=== PATIENT | male | born 1945 | race Hispanic/Latino ===

== ENCOUNTER 2017-06-19 18:32 | Emergency (ER) | payer MEDICARE ==
[2017-06-19] MEDS ORDERED: Bacitracin 500 Units/gm Oint Foilpak UD TOP STA (19:39)
[2017-06-19] MEDS ORDERED: Tetanus/Diphtheria Toxoids 0.5 ml Syringe IM ONE (19:39)
[2017-06-19] MEDS ORDERED: Lidocaine 1% Inj (20ml) INFIL STA (19:39)
[2017-06-19 19:49] VITALS: O2SAT 97
[2017-06-19] MEDS ORDERED: Lidocaine 2% Inj (20ml) ONE (20:14)
[2017-06-19] MEDS ORDERED: Lidocaine Hydrochloride 0 ML INJ ONE (20:15)
--- NOTE | 2017-06-19 21:20 | C.PDOC ---
History Of Present Illness 71 year old male presents to the ER after his dog scratched his left hand after he was trying to pull a toy away from it. Patient denies any bite injury, weakness, or numbness. Time Seen by Provider: 06/19/17 19:32 Chief Complaint (Nursing): Abnormal Skin Integrity History Per: Patient History/Exam Limitations: no limitations Onset/Duration Of Symptoms: Hrs Current Symptoms Are (Timing): Still Present Location Of Injury: Left: Hand Quality Of Symptoms: Other (Avulsion) Recent travel outside of the [place]: No - Animal Bite Description Of The Attack: Playing With Animal Description Of The Animal: Family Pet Reports Animal Appears: Well Reports Animal's Immunization Status: CTD Animal Control Notified: No Past Medical History Reviewed: Historical Data, Nursing Documentation, Vital Signs Vital Signs: Last Vital Signs Temp 98.5 F 06/19/17 21:38 Pulse 75 06/19/17 21:38 Resp 16 06/19/17 21:38 BP 122/76 06/19/17 21:38 Pulse Ox 97 06/19/17 23:59 Family History: States: Unknown Family Hx - Social History Hx Alcohol Use: Yes Hx Substance Use: No - Immunization History Hx Tetanus Toxoid Vaccination: No Hx Influenza Vaccination: No Hx Pneumococcal Vaccination: No Review Of Systems Musculoskeletal: Positive for: Hand Pain Skin: Positive for: Other (Avulsion) Neurological: Negative for: Weakness, Numbness Physical Exam - Physical Exam Appears: Non-toxic Skin: Warm, Dry Head: Atraumatic, Normacephalic Eye(s): bilateral: Normal Inspection Extremity: Capillary Refill (<2 seconds), Other (7cm skin avulsion to dorsal aspect of left hand between 1st and 2nd metacarpal) Pulses: Left Radial: Normal, Right Radial: Normal Neurological/Psych: Oriented x3, Normal Speech, Normal Motor, Normal Sensation ED Course And Treatment O2 Sat by Pulse Oximetry: 97 (room air) Pulse Ox Interpretation: Normal Progress Note: Tetanus vaccination administered. Wound was irrigated and cleansed, 15 sutures placed, bacitracin and dressing applied, patient tolerated procedure well with no difficulty. Patient started on keflex and given proper wound care instructions. Patient placed in thumb spica by CP, checked by me and instructed to follow up with hand specialist, Dr. Calderon, or return if any sign of infection arise. Laceration - Laceration Repair Dorsal Left hand Wound Length (In cm): 7 Description Of Wound: Irregular Wound Cleansed With: Sterile Saline Anesthesia: Lidocaine 1% Wound Examination: Irrigated With Saline, No FB With Wound Exploration Wound Closure: Suture (x15) Suture Technique And Material Used: Nylon (4-0) Disposition - Disposition Referrals: Matt Calderon MD [Staff Provider] - Disposition: HOME/ ROUTINE Disposition Time: 21:17 Condition: STABLE Additional Instructions: Follow up with hand specialist within 2-3 days. Return to ED if feel worse. suture removal in 14 days. Prescriptions: Cephalexin [cephalexin] 500 mg PO Q6 #28 cap Instructions: Laceration Repair With Stitches (DC) Forms: [id number] (Guatemalan) - Clinical Impression Clinical Impression: Laceration of hand - PA / DRUG ABUSE RESISTANCE EDUCATION OFFICER / Resident Statement MD/DO has reviewed & agrees with the documentation as recorded. - Scribe Statement The provider has reviewed the documentation as recorded by the Scribe Talon Diehl All medical record entries made by the Scribe were at my direction and personally dictated by me. I have reviewed the chart and agree that the record accurately reflects my personal performance of the history, physical exam, medical decision making, and the department course for this patient. I have also personally directed, reviewed, and agree with the discharge instructions and disposition.
[2017-06-19 21:40] VITALS: BP 122/76; PULSE 75; RESP 16; TEMP 98.5
== END 2017-06-19 21:45 | disposition home or self-care (01) ==
LOC: C.ER 18:32
DX: S61.412A Laceration without foreign body of left hand, initial encounter (principal); W54.1XXA Struck by dog, initial encounter; Y92.89 Other specified places as the place of occurrence of the external cause; Z23 Encounter for immunization

== ENCOUNTER 2017-07-03 10:28 | Emergency (ER) | payer MEDICARE ==
[2017-07-03 10:43] VITALS: BP 135/84; PULSE 70; RESP 16; TEMP 98; O2SAT 97
--- NOTE | 2017-07-03 10:57 | C.PDOC ---
History Of Present Illness 71 yo male, presnets for removal of sutures. pt has sutures placed 14 days ago after dog bite. no fever, drainage or other complaints. Time Seen by Provider: 07/03/17 10:44 Chief Complaint (Nursing): Suture/Staple Removal Past Medical History Reviewed: Historical Data, Nursing Documentation, Vital Signs Vital Signs: Last Vital Signs Temp 98 F 07/03/17 10:41 Pulse 70 07/03/17 10:41 Resp 16 07/03/17 10:41 BP 135/84 07/03/17 10:41 Pulse Ox 97 07/03/17 10:41 Family History: States: Unknown Family Hx - Social History Hx Alcohol Use: Yes Hx Substance Use: No - Immunization History Hx Tetanus Toxoid Vaccination: No Hx Influenza Vaccination: No Hx Pneumococcal Vaccination: No Review Of Systems Skin: Positive for: Other (laceration to left hand with sutures) Physical Exam - Physical Exam Appears: Well, No Acute Distress Skin: Normal Color, Warm, Dry Eye(s): bilateral: Normal Inspection, PERRL, EOMI Nose: Normal Throat: Normal Neck: Normal Cardiovascular: Rhythm Regular Respiratory: Normal Breath Sounds Gastrointestinal/Abdominal: Normal Exam Back: Normal Inspection Extremity: Normal ROM, Other ((+)left hand 2-3 cm, vshaped laceration, c/d/i, minimal surroudning erythema, no drainage, not hot to touch) ED Course And Treatment O2 Sat by Pulse Oximetry: 97 Medical Decision Making Medical Decision Making: sutures removed. advise outpt fu and strict return precautions for any e/o of infection. 15 sutures removed, steristrips applied Disposition - Disposition Disposition: HOME/ ROUTINE Disposition Time: 10:56 Condition: STABLE Additional Instructions: please follow up with your doctor. return to er with worsening symptoms or concerns. Instructions: Stitches Removal - Clinical Impression Clinical Impression: Removal of suture
== END 2017-07-03 10:59 | disposition home or self-care (01) ==
LOC: C.ER 10:28
DX: Z48.02 Encounter for removal of sutures (principal)